=== PATIENT | male | born 1995 | race Native Hawaiian/Other Pacific Islander ===

== ENCOUNTER 2019-10-16 10:27 | Outpatient (CLI) | payer OTHER | END 2019-10-16 22:23 | disposition home or self-care (01) | LOC: LAB 10:27 → LABW 10:27 | DX: J32.9 Chronic sinusitis, unspecified (principal); R53.83 Other fatigue; R68.83 Chills (without fever) | CPT/HCPCS: 87635; G2023; U0002 ==

== ENCOUNTER 2020-05-20 16:46 | Emergency (ER) | payer BC ==
[~2020-05-20] VITALS: Ht 177.8 cm; Wt 74.8 kg
[2020-05-20 16:49] VITALS: TEMP 99.5
[2020-05-20 17:10] LABS: PLATELET COUNT 318 K/uL (142-355)
[2020-05-20 17:17] LABS: POTASSIUM 3.1 mmol/L (3.6-5.2)
[2020-05-20 17:27] LABS: PARTIAL THROMBOPLASTIN TIME 23.6 SECONDS (24.5-33.6)
[2020-05-20 19:50] VITALS: BP 167/93
== END 2020-05-20 19:59 | disposition short-term general hospital (02) ==
LOC: ED 16:46
PROVIDERS: Emergency Medicine Emergency Medical Services
DX: S62.665B Nondisplaced fracture of distal phalanx of left ring finger, initial encounter for open fracture (principal); S62.667B Nondisplaced fracture of distal phalanx of left little finger, initial encounter for open fracture; S61.432A Puncture wound without foreign body of left hand, initial encounter; S71.142A Puncture wound with foreign body, left thigh, initial encounter; W32.0XXA Accidental handgun discharge, initial encounter; Y92.812 Truck as the place of occurrence of the external cause
CPT/HCPCS: 36415; 80053; 85027; 85610; 85730; 90471; 90715; 96360; 96361; 96365; 96375; 99285; J0690; J1885; J2270

== ENCOUNTER 2021-11-04 14:56 | Outpatient (CLI) | payer BC | END 2021-11-04 19:23 | disposition home or self-care (01) | LOC: CT 14:56 | PROVIDERS: ATTEND Registered Nurse | DX: R10.32 Left lower quadrant pain (principal) | CPT/HCPCS: Q9963 ==